=== PATIENT | female | born 1950 | race Caucasian/White ===

== ENCOUNTER 2017-04-13 15:53 | Emergency (ER) | payer OTHER ==
[~2017-04-13] VITALS: Ht 157.5 cm; Wt 36.5 kg
[2017-04-13 16:01] VITALS: BP 162/91; PULSE 92; RESP 16; TEMP 98.5; O2SAT 97
--- NOTE | 2017-04-13 16:39 | PD ---
HPI Chief Complaint: Oral / Dental Pain or Problem Time Seen by Provider: 16:30 Travel History International Travel<30 days: No Contact w/Intl Traveler<30days: No Traveled to known affect area: No History of Present Illness HPI 67-year-old female with history of bone cancer and breast cancer presents emergency department with pain and swelling in the left lower jaw. Patient is missing the #19,18 and 17 teeth. She states it has not bothered her for quite some time, but in the last 2 days has become more painful and swollen. She denies fever, chills, or other symptoms. Patient states she recently received chemotherapy for her cancer. She has no other complaints. Her pain is about a 5 out of 10. She has no known drug allergies. PFSH Past Medical History Chemotherapy: Yes (04/05/17) Social History Alcohol Use: Yes Tobacco Use: Yes Substance Use: No Allergies-Medications (Allergen,Severity, Reaction): Coded Allergies: No Known Allergies (Unverified , 04/13/17) Reported Meds & Prescriptions Reported Meds & Active Scripts Active Ibuprofen 600 Mg Tab 600 Mg PO Q8HR PRN Clindamycin (Clindamycin HCl) 300 Mg Cap 300 Mg PO TID 10 Days Review of Systems Except as stated in HPI: all other systems reviewed are Neg General / Constitutional: No: Fever, Chills Eyes: No: Visual changes HENT: Positive: Dental Difficulties, No: Headaches, Vertigo, Lightheadedness, Sore Throat, Rhinitis, Rhinorrhea, Congestion, Nosebleed, Neck Stiffness, Neck Pain, Masses, Gingival Bleeding, Ear Discharge, Earache Cardiovascular: No: Chest Pain or Discomfort Respiratory: No: Shortness of Breath Gastrointestinal: No: Abdominal Pain Genitourinary: No: Dysuria Musculoskeletal: No: Pain Skin: No Rash Neurologic: No: Weakness Psychiatric: No: Depression Endocrine: No: Polydipsia Hematologic/Lymphatic: No: Easy Bruising Physical Exam Narrative GENERAL: Patient appears in no obvious distress. SKIN: Warm and dry. Normal color. Normal turgor. HEAD: Atraumatic. Normocephalic. Patient has mild swelling over the left lower jaw. EYES: Pupils equal and round. No scleral icterus. No injection or drainage. ENT: No nasal bleeding or discharge. Mucous membranes pink and moist. Patient is missing the #19,18 and 17 tooth. The socket appears somewhat erythematous and yellowish drainage is noted. Patient has swelling of the left lower jaw gingiva. TMs are clear. Pharynx is clear. Airways patent. NECK: Trachea midline. Supple and nontender. No signs Buster's angina. CARDIOVASCULAR: Regular rate and rhythm. RESPIRATORY: No accessory muscle use. Clear to auscultation. Breath sounds equal bilaterally. GASTROINTESTINAL: Abdomen soft, non-tender, nondistended. Hepatic and splenic margins not palpable. MUSCULOSKELETAL: Extremities without clubbing, cyanosis, or edema. No obvious deformities. NEUROLOGICAL: Awake and alert. No obvious cranial nerve deficits. Motor grossly within normal limits. Five out of 5 muscle strength in the arms and legs. Normal speech. PSYCHIATRIC: Appropriate mood and affect; insight and judgment normal. Data Data Last Documented VS Vital Signs Date Time Temp Pulse Resp B/P (MAP) Pulse Ox O2 Delivery O2 Flow Rate FiO2 04/13/17 16:01 98.5 92 16 162/91 (114) 97 Orders Orders Clindamycin (Cleocin) (04/13/17 16:45) Ibuprofen (Motrin) (04/13/17 16:45) MDM Medical Decision Making Medical Screen Exam Complete: Yes Emergency Medical Condition: Yes Medical Record Reviewed: Yes Differential Diagnosis Dental abscess. Dental caries. Dental pain. Narrative Course Patient given clindamycin 300 mg p.o. now Patient is given ibuprofen 600 mg p.o. now Patient continued on clindamycin 300 mg 3 times daily 10 days. Patient is given 600 mg ibuprofen 3 times daily #30. Patient is to follow-up with her dentist or return to emergency department with worsening symptoms as needed. Diagnosis Primary Impression: Dental abscess Referrals: Dentist Patient Instructions: Dental Abscess (ED), General Instructions Additional Instructions: Patient given clindamycin 300 mg p.o. now Patient is given ibuprofen 600 mg p.o. now Patient continued on clindamycin 300 mg 3 times daily 10 days. Patient is given 600 mg ibuprofen 3 times daily #30. Patient is to follow-up with her dentist or return to emergency department with worsening symptoms as needed. Med/Other Pt SpecificInfo: Prescription(s) given Scripts Ibuprofen (Ibuprofen) 600 Mg Tab 600 MG PO Q8HR Y for PAIN, #30 TAB 0 Refills Prov: Nabil Henderson MD 04/13/17 Clindamycin (Clindamycin) 300 Mg Cap 300 MG PO TID for Infection for 10 Days, CAP 0 Refills Prov: Nabil Henderson MD 04/13/17 Disposition: 01 DISCHARGE HOME Condition: Stable Jah Davila Apr 13, 2017 16:39
[2017-04-13] MEDS ORDERED: IBUP-232 PO (16:40)
[2017-04-13] MEDS ORDERED: CLIN300C5 PO (16:40)
[2017-04-13] MEDS ORDERED: CLINDAMYCIN 150 MG CAP PO ONE (16:45)
[2017-04-13] MEDS ORDERED: IBUPROFEN 600 MG TAB PO ONE (16:45)
== END 2017-04-13 17:57 | disposition home or self-care (01) ==
LOC: NEPD 15:53
DX: K04.7 Periapical abscess without sinus (principal); Z85.3 Personal history of malignant neoplasm of breast; Z85.830 Personal history of malignant neoplasm of bone; Z72.0 Tobacco use
CPT/HCPCS: 99283